=== PATIENT | male | born 1990 | race Caucasian/White ===

== ENCOUNTER 2023-09-27 12:04 | Emergency (ER) | payer MEDICARE, MEDICAID, SELFPAY ==
--- NOTE | ~2023-09-27 | CT_ITS ---
EXAMINATION: CT HEAD WITHOUT CONTRAST CT FACE WITHOUT CONTRAST CT CERVICAL SPINE WITHOUT CONTRAST CLINICAL INFORMATION: Head injury. COMPARISON: No relevant prior imaging. TECHNIQUE: [employer] Manager images were obtained. CT imaging of the head, face, and cervical spine was performed without contrast. Data was reformatted into multiplanar images at the acquisition workstation. This CT examination was performed using dose optimization techniques as appropriate, including one or more of the following: Automated exposure control, iterative reconstruction, and adjustment of technique factors (mA and/or kVp) according to patient size (this includes techniques or standardized protocols for targeted exams where dose is matched to indication/reason for exam). Fleischner Society criteria for the followup of incidental pulmonary nodules was implemented if appropriate. DLP: 1599 mGy-cm. FINDINGS: Head: There is no acute intracranial hemorrhage or abnormal extra-axial collection. No intracranial mass effect or midline shift. Lateral and third ventricles are normal. No hydrocephalus. Urias-white matter differentiation is preserved and there is no evidence of acute infarct. There is swelling of the scalp. The underlying calvarium is intact. No acute skull base fracture. There is no mastoid middle ear effusion. Face: Nasal bones, zygomatic arches, and pterygoid processes are intact. No acute mandibular fracture. Globes and extraocular muscles are symmetric. No abnormal retrobulbar inflammation or hematoma. Lamina papyracea and orbital floors are intact and there is no evidence of acute orbital blowout fracture. No active paranasal sinus disease. All of the major paranasal sinus drainage pathways are grossly patent. The nasal septum deviates to the right and there is a rightward projecting nasal septal spur. Cervical spine: Spinal alignment is normal. Vertebral body heights are preserved. No acute cervical fracture. No abnormal prevertebral soft tissue swelling. Canal patency is not well assessed on this examination due to inherent limitations of CT without intrathecal contrast. Grossly no spinal canal compromise. Visualized soft tissues of the neck are unremarkable. Lung apices are clear. CT/CT facial bones wo IV con IMPRESSION: Head: There is swelling of the scalp. This component examination is otherwise unremarkable. No evidence of acute territorial infarct or hemorrhage. No intracranial mass effect or hydrocephalus. Face: No acute facial fracture. Cervical Spine: No acute cervical fracture and no posttraumatic spinal subluxation.
--- NOTE | ~2023-09-27 | CT_ITS ---
EXAMINATION: CT HEAD WITHOUT CONTRAST CT FACE WITHOUT CONTRAST CT CERVICAL SPINE WITHOUT CONTRAST CLINICAL INFORMATION: Head injury. COMPARISON: No relevant prior imaging. TECHNIQUE: [employer] images were obtained. CT imaging of the head, face, and cervical spine was performed without contrast. Data was reformatted into multiplanar images at the acquisition workstation. This CT examination was performed using dose optimization techniques as appropriate, including one or more of the following: Automated exposure control, iterative reconstruction, and adjustment of technique factors (mA and/or kVp) according to patient size (this includes techniques or standardized protocols for targeted exams where dose is matched to indication/reason for exam). Fleischner Society criteria for the followup of incidental pulmonary nodules was implemented if appropriate. DLP: 1599 mGy-cm. FINDINGS: Head: There is no acute intracranial hemorrhage or abnormal extra-axial collection. No intracranial mass effect or midline shift. Lateral and third ventricles are normal. No hydrocephalus. Urias-white matter differentiation is preserved and there is no evidence of acute infarct. There is swelling of the scalp. The underlying calvarium is intact. No acute skull base fracture. There is no mastoid middle ear effusion. Face: Nasal bones, zygomatic arches, and pterygoid processes are intact. No acute mandibular fracture. Globes and extraocular muscles are symmetric. No abnormal retrobulbar inflammation or hematoma. Lamina papyracea and orbital floors are intact and there is no evidence of acute orbital blowout fracture. No active paranasal sinus disease. All of the major paranasal sinus drainage pathways are grossly patent. The nasal septum deviates to the right and there is a rightward projecting nasal septal spur. Cervical spine: Spinal alignment is normal. Vertebral body heights are preserved. No acute cervical fracture. No abnormal prevertebral soft tissue swelling. Canal patency is not well assessed on this examination due to inherent limitations of CT without intrathecal contrast. Grossly no spinal canal compromise. Visualized soft tissues of the neck are unremarkable. Lung apices are clear. CT/CT head/brain wo IV con IMPRESSION: Head: There is swelling of the scalp. This component examination is otherwise unremarkable. No evidence of acute territorial infarct or hemorrhage. No intracranial mass effect or hydrocephalus. Face: No acute facial fracture. Cervical Spine: No acute cervical fracture and no posttraumatic spinal subluxation.
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
[2023-09-27 12:07] VITALS: BP 135/77; PULSE 99; RESP 20; TEMP 36.4; O2SAT 97; BMI 27.8
[2023-09-27 15:09] VITALS: BP 135/77; PULSE 99; RESP 20; TEMP 36.4; O2SAT 97
== END 2023-09-27 15:09 | disposition home or self-care (01) ==
PROVIDERS: Emergency Provider Emergency Medicine
DX: S05.12XA Contusion of eyeball and orbital tissues, left eye, initial encounter (principal); S09.90XA Unspecified injury of head, initial encounter; R51.9 Headache, unspecified; M54.2 Cervicalgia; Y33.XXXA Other specified events, undetermined intent, initial encounter; Y93.89 Activity, other specified; Y92.099 Unspecified place in other non-institutional residence as the place of occurrence of the external cause; Y99.8 Other external cause status
CPT/HCPCS: 70450; 70486; 72125; 99282; 99284